=== PATIENT | female | born 1970 | race Caucasian/White ===

== ENCOUNTER 2017-10-15 06:43 | Emergency (ER) | payer SELFPAY ==
[~2017-10-15] VITALS: Ht 162.6 cm; Wt 77.1 kg
[~2017-10-15 06:43] MED LIST: IBUPROFEN600 MG ORAL; NKM
[2017-10-15] MEDS ORDERED: Bicillin LA 1.2 Million Units Syr IM ONE (07:15)
[2017-10-15] MEDS ORDERED: Ketorolac 30mg Inj IV ONE (07:15)
--- NOTE | 2017-10-15 07:17 | Emergency Room Report ---
History of Present Illness General Chief Complaint: General Complaint Source: Patient Present Illness HPI 47-year-old female walks in with 3 days of left-sided sore throat, body aches, chills, and headache. Took one dose of Excedrin with minimal improvement. Denies associated cough, nasal congestion, rhinorrhea, neck stiffness or pain, chest pain, shortness of breath, abdominal pain or urinary complaints. No sick contacts at home or work. Has had strep throat before. Has history of high blood pressure, medication was recently changed from lisinopril to another medication the name of which she cannot remember. Denies smoking, asthma or COPD history Allergies: Coded Allergies: No Known Allergies (Unverified , 10/14/13) Patient History Past Medical History: HTN Past Surgical History: none Pertinent Family History: none Social History: Denies: smoking, alcohol use, drug use Last Menstrual Period: jul 2017 Now: No : 2 Immunizations: UTD Reviewed Nursing Documentation: PMH: Agreed, PSxH: Agreed Nursing Documentation-PMH Past Medical History: No Stated History Hx Hypertension: Yes Review of Systems All Other Systems: negative except mentioned in HPI Physical Exam Vital Signs Date Time Temp Pulse Resp B/P (MAP) Pulse Ox O2 Delivery O2 Flow Rate FiO2 10/15/17 06:47 98.4 121 18 174/105 98 Room Air Sp02 EP Interpretation: reviewed, normal General Appearance: normal inspection, well appearing, no apparent distress, alert, GCS 15, non-toxic Head: normocephalic, atraumatic Eyes: bilateral eye PERRL, bilateral eye EOMI ENT: normal ENT inspection, hearing grossly normal, normal voice, moist mucus membranes, pharyngeal erythema, tonsillar exudate Neck: normal inspection, full range of motion, supple, no bony tend Respiratory: normal inspection, lungs clear, normal breath sounds, no respiratory distress, no retraction, no accessory muscle use, no wheezing, speaking full sentences Cardiovascular #1: regular rate, rhythm, no edema Gastrointestinal: normal inspection, normal bowel sounds, non tender, soft, no guarding, no hernia Genitourinary: no CVA tenderness Musculoskeletal: normal inspection, back normal, normal range of motion, Dagmar' s Sign negative Neurologic: normal inspection, alert, oriented x3, responsive, 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 Vital signs with tachycardia, normotensive, afebrile Patient well-appearing nonseptic appearing She elected for penicillin G injection Also gave Toradol and IV fluids in the ER He was much better after medication We'll provide ibuprofen as needed for bodyaches chills and sore throat Post primary care followup yo ER course: Patient has remained stable during ED stay. Disposition: Patient is to be discharged to home. Prescriptions given are motrin Patient is instructed to follow up with their primary care doctor within 5 days. Strict return precautions discussed with patient such as fever, chills, worsening/severe pain, nausea, vomiting, which may indicate severe illness. Patient verbalizes understanding and agrees with plan. Please note that this Emergency Department Report was dictated using [email or web address] process improvement technology software, occasionally this can lead to erroneous entry secondary to interpretation by the dictation equipment Last Vital Signs Date Time Temp Pulse Resp B/P (MAP) Pulse Ox O2 Delivery O2 Flow Rate FiO2 10/15/17 06:47 98.4 121 18 174/105 98 Room Air Status: improved Disposition: HOME, SELF-CARE Referrals: NOT CHOSEN ERICH/,REFERRING (PCP) RUDDY SLAUGHTER M.D. Oct 15, 2017 07:17
[2017-10-15] MEDS ORDERED: IBUPROFEN600 MG ORAL (07:18)
[2017-10-15 08:09] VITALS: BP 168/88
[2017-10-15 08:11] VITALS: BP 168/88
== END 2017-10-15 08:12 | disposition home or self-care (01) ==
LOC: EMR 07:06
DX: J02.0 Streptococcal pharyngitis (principal); I10 Essential (primary) hypertension; R00.0 Tachycardia, unspecified
CPT/HCPCS: 96361; 96372; 96374; 99284; J0570; J1885; J0561